=== PATIENT | male | born 1990 | race Caucasian/White ===

== ENCOUNTER 2022-03-06 14:21 | Outpatient (CLI) | payer BC, SELFPAY ==
--- NOTE | ~2022-03-06 | XR_ITS ---
XR elbow RT min 3V DATE: 03/06/2022 14:32 INDICATION: Right elbow pain TECHNIQUE: 4 views COMPARISON: None FINDINGS: Small smooth lucency of the cortex of the distal medial humeral metaphysis is likely not of acute significance. No fracture or dislocation or joint effusion of the elbow is evident. There is mild coronoid process spurring. IMPRESSION: Benign small lucency of the distal medial humeral metaphyseal cortex Mild coronoid process spurring Reviewed, dictated and finalized at location A. IMPRESSION: Benign small lucency of the distal medial humeral metaphyseal claudine x Mild coronoid process spurring
== END 2022-03-06 14:22 | disposition home or self-care (01) ==
PROVIDERS: Visit Provider Orthopaedic Surgery
DX: M77.11 Lateral epicondylitis, right elbow (principal); M77.8 Other enthesopathies, not elsewhere classified
CPT/HCPCS: 73080